=== PATIENT | female | born 1950 | race Hispanic/Latino ===

== ENCOUNTER 2024-01-22 14:10 | Emergency (ER) | payer MEDICARE, OTHER ==
[~2024-01-22] VITALS: Ht 154.9 cm; Wt 73.9 kg
[2024-01-22 15:16] LABS: BASOPHILS # (AUTO) 0.04 K/uL (0.00-0.20); BASOPHILS % (AUTO) 0.6 % (0.0-5.0); EOSINOPHILS # (AUTO) 0.06 K/uL (0.00-0.70); EOSINOPHILS % (AUTO) 0.9 % (0.0-8.0); HEMATOCRIT 39.6 % (36-48); IMMATURE GRANULOCYTE ABSOLUTE 0.01 K/uL (0-1); LYMPHOCYTES # (AUTO) 1.8 K/uL (1.0-4.8); LYMPHOCYTES % (AUTO) 27.1 % (21.0-51.0); MEAN CORPUSCULAR HEMOGLOBIN 31.1 pg (27.0-33.0); MEAN CORPUSCULAR HGB CONC 33.6 g/dL (32.0-36.0); MEAN CORPUSCULAR VOLUME 92.7 fL (79-99); MONOCYTES # (AUTO) 0.6 K/uL (0.1-1.0); MONOCYTES % (AUTO) 9.4 % (3.0-13.0); NEUTROPHILS # (AUTO) 4.2 K/uL (1.8-7.7); NEUTROPHILS % (AUTO) 61.9 % (40.0-77.0); PLATELET COUNT (AUTO) 117 K/uL (130-400); RED BLOOD CELL COUNT(AUTO) 4.27 MIL/uL (4.00-5.50); RED CELL DISTRIBUTION WIDTH 13.2 % (11.0-15.5); WHITE BLOOD COUNT (AUTO) 6.8 K/uL (4.8-10.8)
[2024-01-22 15:26] LABS: CREATININE 0.5 mg/dL (0.5-1.0); POTASSIUM 3.5 mmol/L (3.5-5.1)
[2024-01-22 15:33] LABS: ALBUMIN 3.3 g/dL (3.5-5.0); BILIRUBIN,TOTAL 0.4 mg/dL (0.2-1.0); TOTAL PROTEIN, SERUM 7.3 g/dL (6.0-8.3)
[2024-01-22 19:41] VITALS: BP 118/84; PULSE 75; RESP 17; O2SAT 99
[2024-01-22] MEDS ORDERED: PRED50TA2 PO ×2 (20:00→20:21)
[2024-01-22] MEDS ORDERED: ONDA-243 PO ×2 (20:00→20:21)
== END 2024-01-22 20:28 | disposition home or self-care (01) ==
LOC: EDH 14:10
DX: M50.122 Cervical disc disorder at C5-C6 level with radiculopathy (principal); M50.123 Cervical disc disorder at C6-C7 level with radiculopathy; R20.0 Anesthesia of skin; R20.2 Paresthesia of skin; M25.512 Pain in left shoulder; E11.9 Type 2 diabetes mellitus without complications; K21.9 Gastro-esophageal reflux disease without esophagitis; I10 Essential (primary) hypertension
CPT/HCPCS: 36415; 70450; 71045; 72125; 80053; 84484; 85025; 93005

== ENCOUNTER → 2024-02-27 | Outpatient (CLI) | payer MEDICARE ==
[~2024-02-27] MED LIST: ONDA-243 PO; PRED50TA2 PO
[2024-02-27 08:49] LABS: BASOPHILS # (AUTO) 0.03 K/uL (0.00-0.20); BASOPHILS % (AUTO) 0.5 % (0.0-5.0); EOSINOPHILS # (AUTO) 0.12 K/uL (0.00-0.70); HEMATOCRIT 44.5 % (36-48); IMMATURE GRANULOCYTE ABSOLUTE 0.01 K/uL (0-1); LYMPHOCYTES # (AUTO) 1.6 K/uL (1.0-4.8); MEAN CORPUSCULAR HGB CONC 33.3 g/dL (32.0-36.0); MEAN CORPUSCULAR VOLUME 93.1 fL (79-99); MONOCYTES # (AUTO) 0.5 K/uL (0.1-1.0); MONOCYTES % (AUTO) 7.7 % (3.0-13.0); NEUTROPHILS # (AUTO) 3.8 K/uL (1.8-7.7); NEUTROPHILS % (AUTO) 62.6 % (40.0-77.0); PLATELET COUNT (AUTO) 141 K/uL (130-400); RED BLOOD CELL COUNT(AUTO) 4.78 MIL/uL (4.00-5.50); RED CELL DISTRIBUTION WIDTH 13.1 % (11.0-15.5)
[2024-02-27 09:06] LABS: ALBUMIN 3.6 g/dL (3.5-5.0); BILIRUBIN,TOTAL 0.5 mg/dL (0.2-1.0); CREATININE 0.6 mg/dL (0.5-1.0); POTASSIUM 4.8 mmol/L (3.5-5.1); TOTAL PROTEIN, SERUM 7.8 g/dL (6.0-8.3)
[2024-02-27 09:13] LABS: INR 1.03 (0.85-1.15); PROTHROMBIN TIME 11.1 SEC (9.6-11.6)
[2024-02-27 09:14] LABS: PARTIAL THROMBOPLASTIN TIME 28.2 SEC (26.3-35.5)
== END | disposition home or self-care (01) ==
LOC: LAB 02-24 15:10
PROVIDERS: ATTEND Internal Medicine
DX: K74.02 Hepatic fibrosis, advanced fibrosis (principal); K75.81 Nonalcoholic steatohepatitis (NASH); R10.30 Lower abdominal pain, unspecified
CPT/HCPCS: 36415; 80053; 85025; 85610; 85730

== ENCOUNTER 2024-06-27 05:58 | Observation (INO) | payer MEDICARE ==
[2024-06-21 12:01] LABS: BASOPHILS # (AUTO) 0.04 K/uL (0.00-0.20); BASOPHILS % (AUTO) 0.6 % (0.0-5.0); EOSINOPHILS # (AUTO) 0.12 K/uL (0.00-0.70); EOSINOPHILS % (AUTO) 1.9 % (0.0-8.0); HEMATOCRIT 44.5 % (36-48); IMMATURE GRANULOCYTE ABSOLUTE 0.02 K/uL (0-1); LYMPHOCYTES # (AUTO) 1.9 K/uL (1.0-4.8); LYMPHOCYTES % (AUTO) 29.9 % (21.0-51.0); MEAN CORPUSCULAR HEMOGLOBIN 30.6 pg (27.0-33.0); MEAN CORPUSCULAR VOLUME 92.7 fL (79-99); MONOCYTES # (AUTO) 0.5 K/uL (0.1-1.0); MONOCYTES % (AUTO) 7.8 % (3.0-13.0); NEUTROPHILS # (AUTO) 3.7 K/uL (1.8-7.7); NEUTROPHILS % (AUTO) 59.5 % (40.0-77.0); PLATELET COUNT (AUTO) 139 K/uL (130-400); RED CELL DISTRIBUTION WIDTH 12.6 % (11.0-15.5); WHITE BLOOD COUNT (AUTO) 6.3 K/uL (4.8-10.8)
[2024-06-21 12:12] LABS: APPEARANCE,URINE CLEAR (CLEAR); BILIRUBIN,URINE NEGATIVE (NEGATIVE); COLOR,URINE YELLOW (YELLOW); GLUCOSE, URINE (UA) NEGATIVE (NEGATIVE); KETONES,URINE NEGATIVE (NEGATIVE); LEUKOCYTE ESTERASE ,URINE 75 Leu/uL (NEGATIVE); NITRATE,URINE NEGATIVE (NEGATIVE); OCCULT BLOOD,URINE NEGATIVE (NEGATIVE); PH,URINE 7.5 (5.0-8.0); PROTEIN,URINE NEGATIVE (NEGATIVE); UROBILINOGEN,URINE 0.2 mg/dL (0.2-1.0)
[2024-06-21 12:18] LABS: ADD UA MICROSCOPIC YES
[2024-06-21 12:21] VITALS: BP 141/66; PULSE 71; RESP 18; TEMP 97.5
[2024-06-21 12:24] LABS: MUCUS,URINE RARE LPF (None Seen); RBC,URINE 0-1 /HPF (0-1); SQUAMOUS EPITHELIAL CELL,UR MOD /HPF (0-2)
[2024-06-21 12:32] LABS: ALBUMIN 3.7 g/dL (3.5-5.0); CREATININE 0.5 mg/dL (0.5-1.0); POTASSIUM 3.9 mmol/L (3.5-5.1)
[~2024-06-27] VITALS: Ht 154.9 cm; Wt 76.0 kg
[2024-06-27] VITALS (25 sets, daily range): BP systolic 100–138; BP diastolic 36–79; PULSE 68–109; RESP 11–20; TEMP 96.9–98.9; O2SAT 94–98
[~2024-06-27 05:58] MED LIST changes: +AMLO-257 PO; +OMEP20TA20 PO; -ONDA-243 PO; -PRED50TA2 PO; +ROSU40 PO
[2024-06-27] MEDS: FAMOTIDINE 20MG VIAL IV ONE (06:37)
[2024-06-27] MEDS: acetaMINOPHEN 100 ML ONE (06:37)
[2024-06-27] MEDS ORDERED: ROPivacaine 0.5% 5MG/ML 30ML ONE ×2 (06:39→06:55)
[2024-06-27] MEDS ORDERED: ketaMINE 50MG/ML SYRINGE 50 MG/ML DISP.SYRIN ONE (06:39)
[2024-06-27] MEDS: LACTATED RINGERS 1000ML 1,000 ML IV ONE (06:41)
[2024-06-27] MEDS: ceFAZolin SODIUM 2 GM VIAL ONE (06:42)
[2024-06-27] MEDS ORDERED: LIDOCAINE PF 100MG/5ML (2%) SYRINGE 5ML ONE (06:45)
[2024-06-27] MEDS ORDERED: FENTanyl CITRate PF 50 MCG/1 ML 2ML VIAL ONE (06:46)
[2024-06-27] MEDS ORDERED: proPOFol 10 MG/ML 20ML VIAL IV ONE (06:46)
[2024-06-27] MEDS ORDERED: rocuRONium bROMide 10MG/1ML 5ML VL ONE (06:46)
[2024-06-27] MEDS ORDERED: TRANEXAMIC ACID 1000MG/10ML ONE (06:55)
[2024-06-27] MEDS ORDERED: ketOROlac 30MG VIAL (30MG/ML) ONE (06:55)
[2024-06-27] MEDS ORDERED: ondanSETRON 4MG INJ ONE (07:24)
[2024-06-27] MEDS ORDERED: dexaMETHasone SOD PHOSPHATE 10MG/ML 1ML VIAL ONE (07:24)
[2024-06-27] MEDS: ceFAZolin SODIUM 2 GM VIAL IVPB ONE (07:30)
[2024-06-27] MEDS: ketOROlac 30MG VIAL (30MG/ML) IJ ONE (08:45)
[2024-06-27] MEDS ORDERED: NEOSTIGMINE METHYLSULFATE 1MG/ML IV ONE (09:02)
[2024-06-27] MEDS ORDERED: GLYCOPYRROLATE 0.2 MG/ML 5 ML VIAL ONE (09:02)
[2024-06-27] MEDS ORDERED: traMADol HCL 50 MG TABLET PO PRN (09:30)
[2024-06-27] MEDS ORDERED: PoTASSium chl 10% ELIXIR 20MEQ 20 MEQ/15 ML UDCUP PO PRN (09:30)
[2024-06-27] MEDS ORDERED: CYCLOBENZAPRINE HCL 10 MG TABLET PO PRN (09:30)
[2024-06-27] MEDS ORDERED: CALCIUM CARB 500MG PO PRN (09:30)
[2024-06-27] MEDS ORDERED: ondanSETRON 4MG INJ IVP PRN (09:30)
[2024-06-27] MEDS ORDERED: FERROUS FUMARATE 324 MG TABLET PO PRN (09:30)
[2024-06-27] MEDS ORDERED: HYDROcodone/APAP 5/325 1 TAB TABLET PO PRN (09:30)
[2024-06-27] MEDS ORDERED: PoTASSium chloRIDE 20MEQ ER 20 MEQ ERTAB PO PRN (09:30)
[2024-06-27] MEDS ORDERED: PoTASSium chloRIDE 20MEQ/100ML 100 ML IV PRN (09:30)
--- NOTE | 2024-06-27 10:35 | HMCIMG ---
KNEE/PATELLA 1-2VWS RT REASON: S/P RT TKA SURGERY TECHNIQUE: 2 views were obtained. FINDINGS: There is a total knee joint prosthesis in place. There is normal appearance of the adjacent bones. There are surgical changes in the soft tissues. IMPRESSION: No acute findings.
[2024-06-27] MEDS: 0.9%NACL 1000ML 1,000 ML IV SCH (10:40)
[2024-06-27] MEDS: 0.9%NACL 1000ML 1,000 ML IV ONE (10:41)
[2024-06-27] MEDS: ketOROlac 15MG/ML VIAL (15MG/ML) IV SCH (10:43)
[2024-06-27] MEDS: ketOROlac 15MG/ML VIAL (15MG/ML) ONE (11:10)
[2024-06-27] MEDS: HYDROcodone/APAP 5/325 1 TAB TABLET PO PRN (12:44)
--- NOTE | 2024-06-27 13:40 | NUR ---
ORTHO COORDINATOR: TEACHING REGARDING DVT AND PNEUMONIA PREVENTION, PAIN MANAGEMENT AND PAIN EXPECTATIONS. PATIENT IN BED. VISITORS AT BEDSIDE. B SCD'S APPLIED AND FUNCTIONING. NO INCENTIVE SPIROMETER AT BEDSIDE. WILL CALL RESPIRATORY THERAPY TO DELIVER AND EVALUATE PROPER USE. PATIENT RETURN DEMONSTRATED PROPER FOOT FLEXION AND EXTENSION TECHNIQUE. PAIN SCALE REVIEWED. PATIENT VERBALIZED UNDERSTANDING THAT PAIN MEDICATION NEEDS TO BE REQUESTED AND TO UTILIZE THE PAIN SCALE OF 0 TO 10. PATIENT VERBALIZED UNDERSTANDING. ICE PACK APPLIED TO R KNEE. NO ADDITIONAL QUESTIONS OR CONCERNS AT THIS TIME. CALL PLACED TO RESPIRATORY THERAPY.
[2024-06-27] MEDS: GABApentin 100 MG CAPSULE PO SCH (14:06)
[2024-06-27] MEDS: ceFAZolin SODIUM 2 GM VIAL IVP SCH (14:09)
--- NOTE | 2024-06-27 15:44 | OP ---
Operative Note: DATE OF PROCEDURE: 06/27/24 PREOPERATIVE DIAGNOSIS: Right knee osteoarthritis. POSTOPERATIVE DIAGNOSIS: Right knee osteoarthritis. PROCEDURE PERFORMED: Right knee total knee arthroplasty. SURGEON: Rut Mario MD SERVICE NOW DEVELOPER: Reba Kaur. ANESTHESIA: General with adductor canal block. ANESTHESIA: CNC MILL OPERATOR Rosette Caputo. ESTIMATED BLOOD LOSS: 50cc. COMPLICATIONS: None. DRAINS: None. SPECIMENS REMOVED: resected bone. Not sent to pathology. IMPLANTS: [employer] II BCS size 4 Oxinium femur, size 3 tibial base plate, 29 mm patella, 10 mm polyethylene STATEMENT OF MEDICAL NECESSITY: The patient is a 74-year-old female who suffers from right knee osteoarthritis failing conservative management. After discussion of the risks, benefits, and alternatives with the patient, they voluntarily agreed to undergo the aforementioned procedure. DESCRIPTION OF PROCEDURE: Patient was properly identified in the preoperative holding area. Surgical site marking was verified and surgery consent reviewed. The patient was then taken to the operating room and placed in supine position on the OR table. After induction of general anesthesia, preoperative antibiotics were given, all bony prominences were well-padded, and a well padded tourniquet was applied but not inflated at this time. The right lower extremity was then prepped and draped in usual sterile fashion. Surgical time out was done verifying correct surgery, side, site, and location to be performed. We then began the procedure by exsanguinating the limb using an Esmarch and inflating the tourniquet to 350 mmHg. At this point, we made an anterior midline incision using a 10 blade, coming down sharply the level of the fascia. Skin flaps were elevated medially and laterally. We then obtained a clean 10 blade and performed a standard medial parapatellar arthrotomy. We excised the infrapatellar fat pad. We performed our soft tissue releases off of the tibia. We transected the ACL and removed the anterior portion of the medial & lateral meniscus. We then brought the knee into hyperflexion with the patella everted. We used our entry reamer to enter the femoral canal. We then placed our intramedullary cutting guide for our distal femoral cutting block. We then performed our distal femoral osteotomy ensuring appropriate rotation and removed the bony wafer. We then removed these pins and block and then used jig 2 to size the distal femur with the after mentioned size found. We then placed our 5-in-1 cutting block in 3 degrees of external rotation and took our 5 cuts ensuring to protect the patellar tendon and the collateral ligaments. We then removed the cutting block and our bony fragments using a curved osteotome. We then placed our PCL retractor subluxating the tibia anteriorly. Using an extra medullary tibial cutting guide, we hung the block for our proximal tibial cut taking 2 mm off the more diseased portion. Prior to pinning this block in place, we ensured appropriate varus/valgus alignment and posterior slope similar to the [place] slope of the patient's knee. We then performed our proximal tibial osteotomy and removed the bony wafer using Bovie electrocautery to release any remaining soft tissue attachments. We then used our tibial sizing paddle and checked once more for varus & valgus alignment and found this to be appropriate. At this point, we pinned our tibial paddle in place. We then removed the PCL retractor and subluxated the tibia posteriorly while we placed our femoral trial component. We then finished preparing the notch with the reamer and box chisel. The notch portion of the trial femoral component was then placed. A posterior stabilized polyethylene, size 9 trial was placed. The knee was then taken through range of motion and found to have stable full range of motion. We then placed a bump under the ankle and everted the patella to perform our freehand cut of the undersurface the patella. We then sized our patella and reamed to the lug holes for this. We placed our trial patellar component and begin to take the knee through range of motion. The patella had appropriate tracking. At this point we began removing our trial components and punched the tibial keel prior to removing our tibial trial component. Final components were opened and cement was mixed on the back table while we injected local cocktail in the posterior capsule. We then thoroughly irrigated out the bone and dried the bony surfaces. We cemented our tibial component in place ensuring to remove excess cement and placed our trial polyethylene. We then cemented our femoral component in place once again taking time to ensure excess cement was removed leg was brought into full extension to help squeeze the excess cement from around the femoral component. We then brought the knee back in a flexion to remove this portion of the cement at this point we placed the ankle in a bump thoroughly irrigated off the patellar component and cemented our patellar component in standard fashion again removing excess cement. While we waited for the cement to cure, we thoroughly irrigated out the wound with normal saline. Once our cement had cured, we took the knee through a range of motion and found full and stable range of motion. We then elected to use the size 10 polyethylene and removed our trial polyethylene. We impacted our final polyethylene component in place in standard fashion and took the knee through a range of motion check once more. This was satisfactory so we began to repair the arthrotomy using #1 Vicryl in interrupted [id number] fashion. Subcutaneous tissue was repaired using 2-0 Vicryl. Running subcuticular 3-0 Mon ocryl stitch with Dermabond placed over this for the skin. We then applied a foam barrier dressing and a pressure dressing consisting of 4 x 4's fluffs and an Georges wrap. The tourniquet was then deflated. Patient was awakened from anesthesia, and they were taken to the recovery room in stable condition. RUT MARIO MD Jun 27, 2024 15:44
[2024-06-27] MEDS: doCUSate SODIUM 100 MG CAP PO SCH (21:00)
[2024-06-28] VITALS (7 sets, daily range): BP systolic 107–141; BP diastolic 45–68; PULSE 68–87; RESP 18–19; TEMP 97.7–98.5; O2SAT 94–95
[2024-06-28 03:58] LABS: HEMATOCRIT 31.8 % (36-48); MEAN CORPUSCULAR HEMOGLOBIN 30.5 pg (27.0-33.0); MEAN CORPUSCULAR VOLUME 89.8 fL (79-99); RED BLOOD CELL COUNT(AUTO) 3.54 MIL/uL (4.00-5.50); RED CELL DISTRIBUTION WIDTH 12.9 % (11.0-15.5); WHITE BLOOD COUNT (AUTO) 10.3 K/uL (4.8-10.8)
[2024-06-28 04:07] LABS: CREATININE 0.6 mg/dL (0.5-1.0); POTASSIUM 3.8 mmol/L (3.5-5.1)
[2024-06-28] MEDS: ketOROlac 15MG/ML VIAL (15MG/ML) IV PRN (07:48)
[2024-06-28] MEDS: polyETHYLene GLYCol 3350 17 GM POWD.PACK PO SCH (07:48)
[2024-06-28] MEDS: amLODIPine 5 MG TAB PO SCH (07:49)
[2024-06-28] MEDS: ASPIRIN 81 MG EC TAB PO SCH (07:49)
--- NOTE | 2024-06-28 07:49 | PN ---
Ortho postop day one. This morning patient is out of bed seated in a chair. She is awake alert and oriented. Reporting mild to moderate pain. Vital signs have been stable. Afebrile. Laboratory results reviewed. Noted to have a drop in hemoglobin and hematocrit as expected after right total knee arthroplasty. Patient is asymptomatic. We will address per protocol as necessary. The Georges bandages have already been removed in the anterior dressing is intact. The gastrocnemius a soft and nontender. Negative Homans. She has alternating extension and flexion on a footstool. She is flexing at about 80 and extension- 10 as expected. She has maintained ice to operative site. Distal neurovascular exam normal. Operative findings discussed with the patient. Voiding on her own without difficulty. Ambulated yesterday approximately 40 ft with physical therapy and is pending further physical therapy this morning. Anticipated discharge goal is [facility] upon discharge for PT. Assessment: Status post right total knee arthroplasty. Asymptomatic acute postoperative blood loss anemia. Plan: Continue with Dr. Mario's TKA protocol and discharge planning. Asymptomatic acute postoperative blood loss anemia addressed with the protocol Vitals/Labs Vital Signs Date Time Temp Pulse Resp B/P (MAP) Pulse Ox O2 Delivery O2 Flow Rate FiO2 06/28/24 04:00 98.1 83 19 109/54 97 Room Air 06/27/24 20:50 0 21 Laboratory Tests 06/28/24 03:46 Medications Current Medications Cefazolin Sodium 2 gm STK-MED ONCE .ROUTE; Start 06/27/24 at 06:10; Stop 06/27/24 at 06:11; Status DC Lactated Ringer's 1,000 ml @ As Directed STK-MED ONCE IV Last administered on 06/27/24at 06:41; Start 06/27/24 at 06:11; Stop 06/27/24 at 06:11; Status DC Acetaminophen 100 ml @ As Directed STK-MED ONCE .ROUTE; Start 06/27/24 at 06:37; Stop 06/27/24 at 06:37; Status DC Famotidine 20 mg STK-MED ONCE IV; Start 06/27/24 at 06:37; Stop 06/27/24 at 06:37; Status DC Ropivacaine 150 mg STK-MED ONCE .ROUTE; Start 06/27/24 at 06:39; Stop 06/27/24 at 06:39; Status DC Ketamine HCl 50 mg STK-MED ONCE .ROUTE; Start 06/27/24 at 06:39; Stop 06/27/24 at 06:39; Status DC Lidocaine HCl 100 mg STK-MED ONCE .ROUTE; Start 06/27/24 at 06:45; Stop 06/27/24 at 06:46; Status DC Propofol 200 mg STK-MED ONCE IV; Start 06/27/24 at 06:46; Stop 06/27/24 at 06:46; Status DC Rocuronium [place] 50 mg STK-MED ONCE .ROUTE; Start 06/27/24 at 06:46; Stop 06/27/24 at 06:46; Status DC Fentanyl Citrate 100 mcg STK-MED ONCE .ROUTE; Start 06/27/24 at 06:46; Stop 06/27/24 at 06:47; Status DC Tranexamic Acid 1,000 mg STK-MED ONCE .ROUTE; Start 06/27/24 at 06:55; Stop 06/27/24 at 06:55; Status DC Ketorolac Tromethamine 30 mg STK-MED ONCE .ROUTE; Start 06/27/24 at 06:55; Stop 06/27/24 at 06:55; Status DC Ropivacaine 150 mg STK-MED ONCE .ROUTE; Start 06/27/24 at 06:55; Stop 06/27/24 at 06:55; Status DC Dexamethasone Sodium Phosphate 10 mg STK-MED ONCE .ROUTE; Start 06/27/24 at 07:24; Stop 06/27/24 at 07:30; Status DC Ondansetron HCl 4 mg STK-MED ONCE .ROUTE; Start 06/27/24 at 07:24; Stop 06/27/24 at 07:30; Status DC Cefazolin Sodium 2 gm STK-MED ONCE IVPB Last administered on 06/27/24at 07:30; Start 06/27/24 at 07:30; Stop 06/27/24 at 08:17; Status DC Tranexamic Acid 1,000 mg STK-MED ONCE IV Last administered on 06/27/24at 07:40; Start 06/27/24 at 07:40; Stop 06/27/24 at 08:17; Status DC Ketorolac Tromethamine 30 mg STK-MED ONCE IJ Last administered on 06/27/24at 08:45; Start 06/27/24 at 08:45; Stop 06/27/24 at 09:00; Status DC Ropivacaine 150 mg STK-MED ONCE IJ Last administered on 06/27/24at 08:45; Start 06/27/24 at 08:45; Stop 06/27/24 at 09:00; Status DC Tranexamic Acid 1,000 mg STK-MED ONCE IV Last administered on 06/27/24at 08:46; Start 06/27/24 at 08:46; Stop 06/27/24 at 09:00; Status DC Glycopyrrolate 1 mg STK-MED ONCE .ROUTE; Start 06/27/24 at 09:02; Stop 06/27/24 at 09:03; Status DC Neostigmine Methylsulfate 10 mg STK-MED ONCE IV; Start 06/27/24 at 09:02; Stop 06/27/24 at 09:03; Status DC Sodium Chloride 1,000 ml @ 100 mls/hr Q10H IV Last administered on 06/27/24at 11:51; Start 06/27/24 at 09:30; Stop 06/28/24 at 09:29 Polyethylene Glycol 17 gm DAILY PO; Start 06/28/24 at 09:00; Stop 07/28/24 at 08:59 Bisacodyl 10 mg DAILY PRN RC; Start 06/30/24 at 09:30; Stop 07/30/24 at 09:29 Ketorolac Tromethamine 15 mg Q6H PRN IV; Start 06/28/24 at 01:30; Stop 07/03/24 at 01:29 Ferrous Fumarate 324 mg DAILY PRN PO; Start 06/27/24 at 09:30; Stop 07/27/24 at 09:29 Ondansetron HCl 4 mg Q6H PRN IVP; Start 06/27/24 at 09:30; Stop 07/27/24 at 09:29 Calcium Carbonate 500 mg Q12H PRN PO; Start 06/27/24 at 09:30; Stop 07/27/24 at 09:29 Cefazolin Sodium 2 gm Q8H IVP Last administered on 06/27/24at 23:08; Start 06/27/24 at 14:30; Stop 06/27/24 at 22:31; Status DC Cyclobenzaprine HCl 5 mg Q8H PRN PO; Start 06/27/24 at 09:30; Stop 07/27/24 at 09:29 Gabapentin 100 mg TID PO Last administered on 06/27/24at 20:50; Start 06/27/24 at 14:00; Stop 07/27/24 at 13:59 Ketorolac Tromethamine 15 mg Q8H IV Last administered on 06/28/24at 00:17; Start 06/27/24 at 09:30; Stop 06/28/24 at 01:31; Status DC Docusate Sodium 100 mg BID PO; Start 06/27/24 at 21:00; Stop 07/27/24 at 20:59 Potassium Chloride 100 ml @ 100 mls/hr AD PRN IV; Start 06/27/24 at 09:30; Stop 07/27/24 at 09:29 Potassium Chloride 20 meq AD PRN PO; Start 06/27/24 at 09:30; Stop 07/27/24 at 09:29 Potassium Chloride 20 meq AD PRN PO; Start 06/27/24 at 09:30; Stop 07/27/24 at 09:29 Tramadol HCl 50 mg Q6H PRN PO; Start 06/27/24 at 09:30; Stop 07/02/24 at 09:29 Acetaminophen/ Hydrocodone Bitart Q4H PRN PO; Start 06/27/24 at 09:30; Stop 06/27/24 at 09:26; Status DC Amlodipine Besylate 5 mg DAILY PO; Start 06/28/24 at 09:00; Stop 07/28/24 at 08:59 Pantoprazole Sodium 20 mg QODAY PO; Start 06/29/24 at 09:00; Stop 07/29/24 at 08:59 Atorvastatin Calcium 80 mg QMOWEFR PO; Start 06/29/24 at 09:00; Stop 07/29/24 at 08:59 Aspirin 81 mg BID PO; Start 06/28/24 at 09:00; Stop 07/28/24 at 08:59 Acetaminophen/ Hydrocodone Bitart 1 tab Q4H PRN PO Last administered on 06/27/24at 12:44; Start 06/27/24 at 09:30; Stop 07/02/24 at 09:29 Acetaminophen/ Hydrocodone Bitart 2 tab Q4H PRN PO; Start 06/27/24 at 09:30; Stop 07/02/24 at 09:29 Sodium Chloride 1,000 ml @ As Directed STK-MED ONCE IV; Start 06/27/24 at 10:37; Stop 06/27/24 at 10:38; Status DC Ketorolac Tromethamine 15 mg STK-MED ONCE .ROUTE; Start 06/27/24 at 10:41; Stop 06/27/24 at 10:41; Status DC DIMITRI VANCE NP Jun 28, 2024 07:49
[2024-06-28] MEDS: HYDROcodone/APAP 5/325 1 TAB TABLET PO PRN (16:02)
--- NOTE | 2024-06-28 16:49 | NUR ---
Discharge Planning: Referral sent to [facility]. Pending insurance authorization.
[2024-06-29 04:00] VITALS: BP 134/61; PULSE 88; RESP 19; TEMP 98.8
[2024-06-29 08:00] VITALS: BP 118/55; PULSE 79; RESP 18; TEMP 98.1; O2SAT 95
[2024-06-29] MEDS: PANTOPrazole 40 MG TAB DR PO SCH (08:58)
[2024-06-29] MEDS: atorVAStatin 40 MG TABLET PO SCH (08:58)
[2024-06-29 11:39] VITALS: BP 118/65; PULSE 89; RESP 18; TEMP 98.7
[2024-06-29] MEDS ORDERED: CELE50CA9 PO (13:16)
[2024-06-29] MEDS ORDERED: HYDR-4060 PO (13:16)
[2024-06-29] MEDS ORDERED: GABA100C PO (13:16)
[2024-06-29] MEDS ORDERED: DOCU-116 PO (13:16)
[2024-06-29] MEDS ORDERED: CYCL-309 PO (13:16)
[2024-06-29] MEDS ORDERED: AEC81 PO (13:16)
--- NOTE | 2024-06-29 13:26 | DS ---
Discharge Summary Hospital Course Summary: The patient was admitted to the hospital postoperatively on 06/27/2024 after undergoing right total knee arthroplasty. They did well with routine postoperative pain control. They worked well with physical therapy. She developed some acute blood loss anemia but remained asymptomatic from this. The hospital course was otherwise uncomplicated. They were subsequently able to be discharged on postoperative day 2 once discharge arrangements were made with [facility]. Nailhead Puncher(s): none Procedure(s): Right total knee arthroplasty, 06/27/2024 Assessment/Plan: Patient doing well today. On my arrival she was reclined in bed. Demonstrates a IS use with poor volumes, but she was slumped down in the bed with the knee of the bed flexed. On attempts with range motion, I can passively get her out to full extension with significant effort and encouragement push through the stretching type pain. Surgical dressing to the right knee is clean dry and intact. There is moderate amount of edema with mild erythema. Yesterday she was able to walk 40 ft with physical therapy at two different opportunities. Discharge planning is for [facility]. ASSESSMENT: Postop day two status post right total knee doing well Acute blood loss anemia asymptomatic PLAN: See discharge instructions Discharge Instructions: Begin working with physical therapy at the facility. Dressing may be removed 06/30/2024 and left open to air. Showers ok allowing soap and water to run over the wound. Pat dry. Do not submerge wound in tub/pool. Do not apply ointments. Do not apply Betadine. Do not apply peroxide. Ice packs to decrease pain/swelling. Prescriptions have been sent to the pharmacy: *[place] 5/325mg 1 tab every 4 hours as needed for severe pain. (please call for refills) Cyclobenzaprine 5mg 1 tab every 8 hours as needed for muscle spasm pain. Gabapentin 100mg 1 tab every 8 hours (may discontinue if drowsy). Colace 100mg 1 tab orally twice a day as needed for constipation. Aspirin 81mg twice a day for 30 days to prevent blood clots. Celebrex 50mg twice a day as needed for pain. Call for a follow-up appointment in 2-3 weeks at [facility]. Home Medications: Active Scripts Hydrocodone/Acetaminophen (Hydrocodon-Acetaminophen 5-325) 5 Mg-325 Mg Tablet, 1 TAB PO Q4H PRN for MODERATE PAIN (4-6), #28 TAB 0 Refills Prov:ZANE WADDELL MD 06/29/24 Reported Medications Amlodipine Besylate (Amlodipine Besylate) 5 Mg Tablet, 5 MG PO DAILY, TAB 06/22/24 Rosuvastatin Calcium (Crestor) 40 Mg Tab, 20 MG PO QMOWEFR, TAB 06/21/24 Omeprazole (Omeprazole) 20 Mg Tablet.dr, 20 MG PO QODAY, TAB 06/21/24 ZANE WADDELL MD Jun 29, 2024 13:26
[2024-06-29] MEDS: LACTULOSE 20 GM/30 ML UDCUP PO ONE (13:59)
--- NOTE | 2024-06-29 14:59 | NUR ---
D/C ORDERS D/C ORDER RECEIVED. PT HAS NOT HAD A BM, VERBAL ORDER GIVEN BY DR WADDELL TO GIVE LACTULOSE. WILL CALL REPORT ONCE BM IS PASSED
[2024-06-29] MEDS ORDERED: LACTULOSE 20 GM/30 ML UDCUP PO SCH (17:00)
--- NOTE | 2024-06-29 18:05 | NUR ---
D/C REPORT. HAD BM X2 EPISODES. REPORT CALLED TO TIMO COCHRAN @ [facility]. PER FACILITY STAFF, [facility] IS NO LONGER AVAILABLE TO PICK HER UP.
--- NOTE | 2024-06-29 18:36 | NUR ---
EMS TRANSFER [facility] NOTIFIED FOR TRANSFER TO [facility]
[2024-06-29 20:30] VITALS: O2SAT 98
--- NOTE | 2024-06-29 20:35 | NUR ---
DISCHARGE PATIENT D/C TO [facility], IVS REMOVED AT THIS TIME, BELONGINGS TAKEN BY PATIENT, EVENING MEDICATIONS WERE GIVEN PRIOR TO D/C EMS MADE AWARE. PATIENT AOX4 MO DISTRESS NOTED, PATIENT AWARE OF F/U APPOINTMENT WITH DR WADDELL 07/10/24.
[2024-06-30] MEDS ORDERED: BisaCODYL 10 MG SUPP.RECT RC PRN (09:30)
[2024-07-01] MEDS ORDERED: PANTOPrazole 40 MG TAB DR PO SCH (09:00)
== END 2024-06-29 20:35 | disposition short-term general hospital (02) ==
LOC: DAH 05:58 → DAHIP 05:59 → 3BH 11:55
PROVIDERS: ADMIT Student in an Organized Health Care Education/Training Program; ATTEND Student in an Organized Health Care Education/Training Program
DX: M17.11 Unilateral primary osteoarthritis, right knee (principal); D62 Acute posthemorrhagic anemia; R26.89 Other abnormalities of gait and mobility; G89.29 Other chronic pain; R60.9 Edema, unspecified; E78.5 Hyperlipidemia, unspecified; K21.9 Gastro-esophageal reflux disease without esophagitis; I10 Essential (primary) hypertension; Z79.899 Other long term (current) drug therapy
CPT/HCPCS: 82040; 80048 ×2; 85025; 87086; 84134; 86140; 81001; 36415 ×2; 87641; 27447; 96374; 96376 ×3; 96375; 73560; 97161; 97116 ×5; 97530 ×3; 85027; G0378 ×54; A4663; J7120 ×2; J3490 ×7; J3010; J1100; J7030; J2003; J2704; J2405; J1885 ×9; J2710; J2795 ×3; J0690 ×4; C1713 ×2; C1776 ×2; A4649 ×2; A4930; A6255; A5120; A4215; A4223; A4222; A4221

== ENCOUNTER → 2025-06-21 | Outpatient (CLI) | payer MEDICARE ==
[~2025-06-21] MED LIST changes: +AEC81 PO; +CELE50CA9 PO; +CYCL-309 PO; +DOCU-116 PO; +GABA100C PO; +HYDR-4060 PO
--- NOTE | 2025-06-22 08:14 | HMCIMG ---
EXAM: Lower extremity venous ultrasound, left (limited). TECHNIQUE: Real-time grayscale ultrasound with color and spectral Doppler evaluation of the left lower extremity venous system, including compression maneuvers where technically feasible. CONTRAST: No intravenous contrast administered. CLINICAL INFORMATION: Left knee pain. COMPARISON: None. FINDINGS: Left lower extremity venous system: The left common femoral, profunda femoris, popliteal, posterior tibial, and peroneal veins are patent without intraluminal thrombus. Veins are fully compressible where accessible and demonstrate normal color and spectral Doppler flow. The great saphenous vein is also patent with normal compressibility and flow. IMPRESSION: 1. No evidence of deep venous thrombosis in the evaluated left lower extremity veins. 2. No superficial venous thrombosis identified. /[place]
--- NOTE | 2025-06-22 11:37 | HMCIMG ---
EXAM: CR Left Knee, 3 View CLINICAL HISTORY: Pain in left knee COMPARISON: None provided. FINDINGS: BONES: No acute fracture or aggressive osseous lesion identified. Marginal osteophytes noted along the tibiofemoral and patellofemoral joint margins. JOINTS: Moderate osteoarthritic changes with joint space narrowing, more pronounced in the medial tibiofemoral compartment. Subchondral sclerosis and mild osteophyte formation present. Minimal joint effusion observed in the suprapatellar recess. SOFT TISSUES: Soft tissues appear unremarkable. No calcifications or abnormal swelling detected. IMPRESSION: * Moderate osteoarthritis involving the medial tibiofemoral compartment. * Minimal suprapatellar joint effusion. * No acute fracture or aggressive bone lesion. /[place]
--- NOTE | 2025-06-22 11:37 | HMCIMG ---
EXAM: CR left Tibia and fibula, 2 View. CLINICAL HISTORY: PAIN IN LT LEG COMPARISON: None provided. FINDINGS: BONES: No acute fracture or aggressive appearing osseous lesion. JOINTS: No dislocation. The joint spaces are normal. SOFT TISSUES: The soft tissues are unremarkable. IMPRESSION: 1. No acute findings. /[place]
== END | disposition home or self-care (01) ==
LOC: RAH 11:15
PROVIDERS: ATTEND Nurse Practitioner
DX: M17.12 Unilateral primary osteoarthritis, left knee (principal); I73.9 Peripheral vascular disease, unspecified; M25.762 Osteophyte, left knee; M25.562 Pain in left knee; M79.605 Pain in left leg
CPT/HCPCS: 73562; 73590; 93971